=== PATIENT | female | born 1995 | race Caucasian/White ===

== ENCOUNTER 2022-05-12 11:41 | Day surgery (SDC) | payer BC ==
[~2022-05-12] VITALS: Ht 165.1 cm; Wt 106.3 kg
[2022-05-12] VITALS (7 sets, daily range): BP systolic 96–138; BP diastolic 64–79; PULSE 63–75; TEMP 97.9–98.7
[2022-05-12] MEDS ORDERED: TIROSINT50 MC1 PO (12:28)
[2022-05-12] MEDS ORDERED: NORCO 325 MG-51 TAB PO (17:17)
--- NOTE | 2022-05-12 19:41 | NUR ---
Patient A/Ox4, VSS, NAD, tolerated her regular diet, urinated twice, discharge instructions given, INT discontinued, discharge with mother and her baby boy, excorted by staff at 1935.
== END 2022-05-12 19:35 | disposition home or self-care (01) ==
LOC: SDCO 11:41 → SURG 12:05 → SDCO 16:15
DX: N20.1 Calculus of ureter (principal)
CPT/HCPCS: OP; C1769; C2617; J0690; J1100; J1170; J1885; J2405; J2550; J2704; J2765; J3010